=== PATIENT | male | born 1980 | race Caucasian/White ===

== ENCOUNTER 2017-05-04 10:48 | Emergency (ER) | payer MEDICAID ==
[2017-05-04 10:54] VITALS: BP 142/95
== END 2017-05-04 11:25 | disposition home or self-care (01) ==
LOC: ED 10:48
DX: H01.004 Unspecified blepharitis left upper eyelid (principal)

== ENCOUNTER 2017-05-06 14:26 | Emergency (ER) | payer MEDICAID ==
[2017-05-06 15:07] VITALS: BP 130/84
== END 2017-05-06 15:07 | disposition home or self-care (01) ==
LOC: ED 14:26
DX: H00.014 Hordeolum externum left upper eyelid (principal)

== ENCOUNTER 2017-05-21 07:27 | Emergency (ER) | payer MEDICAID ==
[~2017-05-21] VITALS: Ht 170.2 cm; Wt 82.1 kg
[2017-05-21 07:58] VITALS: BP 132/90
== END 2017-05-21 07:58 | disposition home or self-care (01) ==
LOC: ED 07:27
DX: H00.011 Hordeolum externum right upper eyelid (principal)

== ENCOUNTER 2017-05-23 09:33 | Emergency (ER) | payer MEDICAID ==
[~2017-05-23] VITALS: Ht 170.2 cm; Wt 83.9 kg
[2017-05-23 10:42] VITALS: BP 113/91
== END 2017-05-23 10:42 | disposition home or self-care (01) ==
LOC: ED 09:33
DX: H01.001 Unspecified blepharitis right upper eyelid (principal)

== ENCOUNTER 2017-08-13 10:09 | Emergency (ER) | payer MEDICAID ==
[2017-08-13 10:12] VITALS: BP 151/86
== END 2017-08-13 11:49 | disposition home or self-care (01) ==
LOC: ED 10:09
DX: H01.001 Unspecified blepharitis right upper eyelid (principal)

== ENCOUNTER 2017-08-15 13:22 | Emergency (ER) | payer MEDICAID ==
[~2017-08-15] VITALS: Ht 172.7 cm; Wt 82.1 kg
[2017-08-15 14:54] VITALS: BP 138/96
== END 2017-08-15 14:42 | disposition home or self-care (01) ==
LOC: ED 13:22
DX: H00.011 Hordeolum externum right upper eyelid (principal); F12.90 Cannabis use, unspecified, uncomplicated

== ENCOUNTER 2018-05-16 20:44 | Emergency (ER) | payer MEDICAID ==
[~2018-05-16] VITALS: Ht 172.7 cm; Wt 82.1 kg
[2018-05-16 20:55] VITALS: Ht 172.7 cm; Wt 82.1 kg
[2018-05-16 23:33] VITALS: BP 133/79
== END 2018-05-16 23:33 | disposition home or self-care (01) ==
LOC: ED 20:44
DX: S62.334A Displaced fracture of neck of fourth metacarpal bone, right hand, initial encounter for closed fracture (principal); W22.8XXA Striking against or struck by other objects, initial encounter; Y93.89 Activity, other specified; Y92.89 Other specified places as the place of occurrence of the external cause; Y99.8 Other external cause status
CPT/HCPCS: J1885

== ENCOUNTER 2018-07-04 07:39 | Emergency (ER) | payer MEDICAID ==
[~2018-07-04] VITALS: Ht 172.7 cm; Wt 84.4 kg
[2018-07-04 07:45] VITALS: Ht 172.7 cm; Wt 84.4 kg
[2018-07-04 09:08] VITALS: BP 124/76
== END 2018-07-04 09:08 | disposition home or self-care (01) ==
LOC: ED 07:39
DX: S62.334A Displaced fracture of neck of fourth metacarpal bone, right hand, initial encounter for closed fracture (principal); X58.XXXA Exposure to other specified factors, initial encounter; Y93.89 Activity, other specified; Y92.89 Other specified places as the place of occurrence of the external cause; Y99.8 Other external cause status
CPT/HCPCS: Q0092

== ENCOUNTER 2018-07-15 19:51 | Emergency (ER) | payer SELFPAY ==
[~2018-07-15] VITALS: Ht 170.2 cm; Wt 83.0 kg
[2018-07-15 19:59] VITALS: BP 148/69; Ht 170.2 cm; Wt 83.0 kg
== END 2018-07-15 21:17 | disposition home or self-care (01) ==
LOC: ED 19:51
DX: S50.01XA Contusion of right elbow, initial encounter (principal); Z98.890 Other specified postprocedural states; W01.0XXA Fall on same level from slipping, tripping and stumbling without subsequent striking against object, initial encounter; Y93.89 Activity, other specified; Y92.89 Other specified places as the place of occurrence of the external cause; Y99.8 Other external cause status
CPT/HCPCS: J1885

== ENCOUNTER 2019-11-21 11:30 | Emergency (ER) | payer OTHER ==
[~2019-11-21] VITALS: Ht 172.7 cm; Wt 83.9 kg
[2019-11-21 11:39] VITALS: Ht 172.7 cm; Wt 83.9 kg
[2019-11-21 15:09] LABS: BASOPHIL % 0.4 % (0-2); PLATELET COUNT 268 x10^3mcL (130-400); RED CELL DISTRIBUTION WIDTH 13.2 % (11.5-14.5)
[2019-11-21 15:16] LABS: CALCIUM 8.6 mg/dL (8.5-10.1); CARBON DIOXIDE 28.5 mmol/L (21-32); CHLORIDE SERUM 104 mmol/L (98-107); CREATININE SERUM 1.1 mg/dL (0.7-1.3); GFR1 > 60 mL/min; GLUCOSE SERUM 125 mg/dL (74-106); SODIUM SERUM 138 mmol/L (136-145)
[2019-11-21 15:22] LABS: ALBUMIN 3.3 g/dL (3.4-5.0); ALKALINE PHOSPHATASE 104 U/L (46-116); ALT/SGPT 41 U/L (16-63); AST/SGOT 18 U/L (15-37); LIPASE 106 IU/L (73-393); TOTAL PROTEIN, SERUM 7.8 g/dL (6.4-8.2)
[2019-11-21 15:59] VITALS: BP 138/78
== END 2019-11-21 15:59 | disposition home or self-care (01) ==
LOC: ED 11:30
PROVIDERS: Emergency Medicine
DX: E86.0 Dehydration (principal); J11.1 Influenza due to unidentified influenza virus with other respiratory manifestations
CPT/HCPCS: 87804; J1885; J2405; J7030; J7512; J8597